=== PATIENT | male | born 1985 | race Hispanic/Latino ===

== ENCOUNTER 2016-11-11 06:24 | Emergency (ER) | payer OTHER ==
[2016-11-11 06:49] VITALS: BP 120/69; PULSE 65; RESP 16; TEMP 97.5; O2SAT 97
[2016-11-11] MEDS ORDERED: Lidocaine 1% Inj (20ml) IJ ONE (07:33)
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
[2016-11-11] MEDS ORDERED: Lidocaine 1% Inj (20ml) ONE (07:50)
== END 2016-11-11 08:35 | disposition home or self-care (01) ==
LOC: H.ER 06:24
DX: S01.81XA Laceration without foreign body of other part of head, initial encounter (principal); W22.8XXA Striking against or struck by other objects, initial encounter; Y92.410 Unspecified street and highway as the place of occurrence of the external cause